=== PATIENT | male | born 1990 | race Caucasian/White ===

== ENCOUNTER 2017-03-20 22:01 | Emergency (ER) | payer BC ==
[~2017-03-20] VITALS: Ht 185.4 cm; Wt 81.8 kg
[2017-03-20 22:04] VITALS: BP 124/86; TEMP 97.6
[2017-03-20] MEDS ORDERED: LITHOBID 3300 MG/TAB PO (22:08)
[2017-03-20] MEDS ORDERED: SAPHRIS10 MG SL (22:08)
[2017-03-20] MEDS ORDERED: EFFEXOR-XR150 MG PO (22:08)
[2017-03-20 22:26] LABS: BASO # 0.1 (0.0-0.2); BASO % 0.9 % (0.0-2.0); EOS # 0.3 (0.0-0.7); EOS % 3.6 % (0-4.0); GRAN # 4.7 (1.4-6.5); GRAN % 51.3 % (42.2-75.2); HEMATOCRIT 47.2 % (42.0-52.0); HEMOGLOBIN 15.9 g/dl (13.5-18.0); LYMPH # 3.2 (1.2-3.4); LYMPH % 34.1 % (20.0-51.0); MEAN CELL VOLUME 90 fl (80.0-100.0); MEAN CORPUSCULAR HEMOGLOBIN 30 pg (27.0-31.0); MEAN CORPUSCULAR HGB CONC 34 g/dl (33.0-37.0); MEAN PLATELET VOLUME 9.7 fl (7.4-10.4); MONO # 0.9 (0.1-0.6); MONO % 9.9 % (1.7-9.3); PLATELET COUNT 325 K/mm3 (130-400); RED BLOOD COUNT 5.27 M/mm3 (4.20-5.60); REDCELL DISTRIBUTION WIDTH-CV 12.6 % (11.5-14.5); WHITE BLOOD COUNT 9.2 K/mm3 (4.8-10.8)
[2017-03-20 22:36] LABS: ANION GAP 11 mmol/L (7-16); BLOOD UREA NITROGEN 14 mg/dL (9-20); CALCIUM 9.8 mg/dL (8.4-10.2); CARBON DIOXIDE 28 mmol/L (22-30); CHLORIDE 102 mmol/L (98-107); CREATININE, serum 0.76 mg/dL (0.66-1.25); GLUCOSE 118 mg/dL (74-106); POTASSIUM 4.2 mmol/L (3.4-5.0); SODIUM 141 mmol/L (137-145)
[2017-03-20 22:42] LABS: LITHIUM 0.5 mmol/L (0.6-1.2)
[2017-03-20 22:43] LABS: ACETAMINOPHEN < 10 ug/mL (10-30); SALICYLATE < 1.0 mg/dL
[2017-03-20 23:18] LABS: AMPHETAMINE URINE POSITIVE; BARBITURATES URINE NEGATIVE; BENZODIAZEPINES URINE NEGATIVE; BUPRENORPHINE URINE NEGATIVE; METHADONE URINE NEGATIVE; OPIATES URINE NEGATIVE; OXYCODONE URINE NEGATIVE; PHENCYCLIDINE URINE NEGATIVE; PROPOXYPHENE URINE NEGATIVE; THC CANNABINOIDS URINE POSITIVE
[2017-03-21 02:33] VITALS: PULSE 107
== END 2017-03-21 02:33 | disposition home or self-care (01) ==
LOC: COL.ER 22:01
PROVIDERS: Physician Assistant
DX: F15.159 Other stimulant abuse with stimulant-induced psychotic disorder, unspecified (principal); F31.9 Bipolar disorder, unspecified; T43.596A Underdosing of other antipsychotics and neuroleptics, initial encounter; Z91.128 Patient's intentional underdosing of medication regimen for other reason

== ENCOUNTER 2017-11-23 22:52 | Emergency (ER) | payer BC ==
[~2017-11-23] VITALS: Ht 185.4 cm; Wt 81.8 kg
[~2017-11-23 22:52] MED LIST: EFFEXOR-XR150 MG PO; LITHOBID 3300 MG/TAB PO; SAPHRIS10 MG SL
[2017-11-23 22:55] VITALS: BP 141/68; PULSE 99; TEMP 97
== END 2017-11-23 23:46 | disposition home or self-care (01) ==
LOC: COL.ER 22:52
DX: G24.09 Other drug induced dystonia (principal); F31.9 Bipolar disorder, unspecified; F15.90 Other stimulant use, unspecified, uncomplicated; F12.90 Cannabis use, unspecified, uncomplicated; F17.210 Nicotine dependence, cigarettes, uncomplicated